=== PATIENT | female | born 1975 | race Caucasian/White ===

== ENCOUNTER → 2021-07-01 | Outpatient (CLI) | payer MEDICAID ==
--- NOTE | 2021-07-01 15:51 | KCIC ---
EXAM: Brain MRI without contrast. HISTORY: Dizziness. Hypersomnia. TECHNIQUE: Multiplanar, multisequence magnetic resonance imaging of the brain was performed without c ontrast. COMPARISON: None. FINDINGS: There is no restricted diffusion to suggest acute or subacute infarction. There is no susce ptibility effect to suggest hemorrhage. There is no mass effect or midline shift. There is no hydroce phalus. There are few foci of artifactual hyperintensity within the cerebral white matter on FLAIR im ages. No convincing white matter lesion is seen. The orbits are unremarkable. There is minimal ethmoi d sinus because of thickening. There is no significant mastoid fluid. There are normal flow voids wit hin the cerebral vessels. There is no suspicious calvarial lesion. IMPRESSION: No acute intracranial finding. Electronically signed by: Violetta Li MD (07/01/2021 3:48 PM) [id number]
== END ==
LOC: KCIC MRI 13:54
PROVIDERS: ATTEND Psychiatry & Neurology Neurology with Special Qualifications in Child Neurology
DX: G47.10 Hypersomnia, unspecified (principal); G43.709 Chronic migraine without aura, not intractable, without status migrainosus; R42 Dizziness and giddiness; Z87.820 Personal history of traumatic brain injury
CPT/HCPCS: 70551

== ENCOUNTER → 2021-07-13 | Outpatient (CLI) | payer MEDICAID ==
--- NOTE | 2021-07-21 13:44 | SLEEP ---
DATE OF STUDY: 07/20/2021 HOME SLEEP STUDY REPORT OBJECTIVE: The patient is a 45-year-old female with excessive somnolence, snoring, rule out sleep apnea. Height 60 inches, weight 173 pounds, body mass index 33.8. [place] sleep score 14. INTERPRETATION: There are a total of 75 events for apnea-hypopnea index of 7.6 events per hour of sleep. Minimum oxygen saturation is 80%. Also noted decreased flow from the nasal thermistors, which did not score as apneas, but do represent possible partial obstruction. No significant cardiac arrhythmias are observed. IMPRESSION: Abnormal home sleep study demonstrating evidence of mild obstructive sleep apnea. RECOMMENDATIONS: We will attempt to arrange for the patient to start on auto-titrating CPAP and the patient will return to the office thereafter. Thank you for letting us help with the patient's care JESSICA DR: Enrique TID: [id number]
== END ==
LOC: RT 19:02
PROVIDERS: ATTEND Psychiatry & Neurology Neurology with Special Qualifications in Child Neurology
DX: G47.33 Obstructive sleep apnea (adult) (pediatric) (principal); G47.10 Hypersomnia, unspecified
CPT/HCPCS: G0399